=== PATIENT | male | born 1945 | race Caucasian/White ===

== ENCOUNTER 2018-04-06 17:32 | Emergency (ER) | payer MEDICARE, MEDICAID ==
[2018-04-06] MEDS ORDERED: Sodium Chloride 0.9% 10 ML Syringe FLUSH PRN (18:27)
--- NOTE | 2018-04-06 18:36 | EDM.PDOC ---
ED HPI GENERAL MEDICAL PROBLEM - General Chief Complaint: General Stated Complaint: FALL. IN BY AMB Time Seen by Provider: 04/06/18 18:17 Source of Information: Reports: Patient, EMS, EMS Notes Reviewed, RN, RN Notes Reviewed History Limitations: Reports: No Limitations - History of Present Illness INITIAL COMMENTS - FREE TEXT/NARRATIVE: Patient presented to ER per [facility] with complaint of weakness in the legs. He states his legs give out from under him. His speech is slurred, but friends state this is not new. He has pain in left leg and incontinence today. He has had no headache, fever, chills, chest pain, shortness of breath,nausea, vomiting and diarrhea. Onset: Today Location: Reports: Lower Extremity, Left, Lower Extremity, Right Quality: Reports: Ache Severity: Mild Improves with: Reports: None Worsens with: Reports: None Associated Symptoms: Reports: No Other Symptoms - Related Data Allergies Allergy/AdvReac Type Severity Reaction Status Date / Time No Known Allergies Allergy Verified 04/06/18 17:33 Home Meds: Home Meds Aspirin [Halfprin] 81 mg PO DAILY 12/05/16 [History] Carvedilol 6.25 mg PO BIDMEALS 12/05/16 [History] Chlorthalidone 12.5 mg PO DAILY 12/05/16 [History] Lisinopril/Hydrochlorothiazide [Lisinopril-Hctz 10-12.5 mg Tab] 1 tab PO DAILY 12/05/16 [History] amLODIPine [Norvasc] 10 mg PO DAILY 12/05/16 [History] Past Medical History - Past Health History Medical/Surgical History: Denies Medical/Surgical History HEENT History: Reports: Hard of Hearing Cardiovascular History: Reports: Hypertension, Syncope Endocrine/Metabolic History: Reports: Obesity/BMI 30+ Hematologic History: Reports: Anemia Dermatologic History: Reports: Cellulitis - Infectious Disease History Infectious Disease History: Reports: Chicken Pox, Measles, Mumps - Past Surgical History GI Surgical History: Reports: Colonoscopy Social & Family History - Family History Family Medical History: Noncontributory HEENT: Reports: Hearing Impairment Respiratory: Reports: COPD GI: Reports: Other (See Below) Other GI Family History: PRIMARY BILIARY CHOLANGITIS Neurological: Reports: Parkinson's - Tobacco Use Smoking Status *Q: Never Smoker Second Hand Smoke Exposure: No - Caffeine Use Caffeine Use: Reports: Coffee - Recreational Drug Use Recreational Drug Use: No ED ROS GENERAL - Review of Systems Review Of Systems: ROS reveals no pertinent complaints other than HPI. ED EXAM, GENERAL - Physical Exam Exam: See Below Exam Limited By: No Limitations General Appearance: Alert, WD/WN, No Apparent Distress Eye Exam: Bilateral Eye: Conjunctival Injection Ears: Normal External Exam, Normal Canal, Hearing Grossly Normal, Normal TMs Nose: Normal Inspection, Normal Mucosa, No Blood Throat/Mouth: Normal Inspection, Normal Lips, Normal Teeth, Normal Gums, Normal Oropharynx, Normal Voice, No Airway Compromise Head: Atraumatic, Normocephalic Neck: Normal Inspection, Supple, Non-Tender, Full Range of Motion Respiratory/Chest: Other (expiratory wheezes bilateral) Cardiovascular: Other (murmur irregular) GI/Abdominal: Normal Bowel Sounds, Soft, Non-Tender, No Organomegaly, No Distention, No Abnormal Bruit, No Mass (Male) Exam: Deferred Rectal (Males) Exam: Deferred Back Exam: Normal Inspection, Full Range of Motion, NT Extremities: Normal Inspection, Normal Range of Motion, Non-Tender, Normal Capillary Refill, No Pedal Edema Neurological: Alert, Oriented, CN II-XII Intact, Normal Cognition, Normal Gait, Normal Reflexes, No Motor/Sensory Deficits Psychiatric: Normal Affect, Normal Mood Skin Exam: Warm, Dry, Intact, Normal Color, No Rash Lymphatic: No Adenopathy Course - Vital Signs Last Recorded V/S: Last Vital Signs Temp 99.1 F 04/06/18 23:08 Pulse 77 04/06/18 23:08 Resp 16 04/06/18 23:08 BP 153/70 H 04/06/18 23:08 Pulse Ox 92 L 04/06/18 23:08 - Orders/Labs/Meds Labs: Laboratory Tests 04/06/18 04/06/18 04/06/18 Range/Units 18:36 18:36 18:36 WBC 13.0 H (5.0-10.0) 10^3/uL RBC 4.76 (4.6-6.2) 10^6/uL Hgb 14.7 D (14.0-18.0) g/dL Hct 43.9 (40.0-54.0) % MCV 92.2 (80-100) fL MCH 30.9 (27.0-34.0) pg MCHC 33.5 (33.0-35.0) g/dL Plt Count 179 (150-450) 10^3/uL Neut % (Auto) 81.4 H (42.2-75.2) % Lymph % (Auto) 7.6 L (20.5-50.1) % [place] % (Auto) 10.8 H (2-8) % Eos % (Auto) 0.0 L (1.0-3.0) % Baso % (Auto) 0.2 (0.0-1.0) % Sodium 134 L (135-145) mmol/L Potassium 3.1 L (3.6-5.0) mmol/L Chloride 97 L (101-111) mmol/L Carbon Dioxide 29.0 (21.0-31.0) mmol/L Anion Gap 11.1 BUN 19 H (7-18) mg/dL Creatinine 1.4 H (0.6-1.3) mg/dL Est Cr Clr Drug Dosing 42.10 mL/min Estimated GFR (MDRD) 50 BUN/Creatinine Ratio 13.57 Glucose 95 (74-105) mg/dL Lactic Acid 1.0 (0.5-2.2) mmol/L Calcium 9.1 (8.4-10.2) mg/dl Total Bilirubin 1.5 H (0.2-1.0) mg/dL AST 66 H (10-42) IU/L ALT 23 (10-60) IU/L Alkaline Phosphatase 61 (42-121) IU/L Troponin I 0.02 (0.00-0.02) ng/ml B-Natriuretic Peptide 149 H (0-100) pg/ml Total Protein 7.6 (6.7-8.2) g/dl Albumin 3.6 (3.2-5.5) g/dl Globulin 4.0 Albumin/Globulin Ratio 0.90 Urine Color (YELLOW) Urine Appearance (CLEAR) Urine pH (5.0-9.0) Ur Specific [place] (1.005-1.030) Urine Protein (NEGATIVE) Urine Glucose (UA) (NEGATIVE) Urine Ketones (NEGATIVE) Urine Occult Blood (NEGATIVE) Urine Nitrite (NEGATIVE) Urine Bilirubin (NEGATIVE) Urine Urobilinogen (0.2-1.0) mg/dL Ur Leukocyte Esterase (NEGATIVE) Urine RBC /HPF Urine WBC (0-5/HPF) /HPF Ur Epithelial Cells /HPF Urine Bacteria (0-FEW/HPF) /HPF Urine Mucus /LPF Urine Opiates Screen (NEGATIVE) Ur Oxycodone Screen (NEGATIVE) Urine Methadone Screen (NEGATIVE) Acetaminophen Ur Barbiturates Screen (NEGATIVE) U Tricyclic Antidepress (NEGATIVE) Ur Phencyclidine Scrn (NEGATIVE) Ur Amphetamine Screen (NEGATIVE) U Methamphetamines Scrn (NEGATIVE) Urine MDMA Screen (NEGATIVE) U Benzodiazepines Scrn (NEGATIVE) Urine Cocaine Screen (NEGATIVE) U Marijuana (THC) Screen (NEGATIVE) Ethyl Alcohol < 5 mg/dL 04/06/18 04/06/18 04/06/18 Range/Units 18:36 18:49 18:49 WBC (5.0-10.0) 10^3/uL RBC (4.6-6.2) 10^6/uL Hgb (14.0-18.0) g/dL Hct (40.0-54.0) % MCV (80-100) fL MCH (27.0-34.0) pg MCHC (33.0-35.0) g/dL Plt Count (150-450) 10^3/uL Neut % (Auto) (42.2-75.2) % Lymph % (Auto) (20.5-50.1) % [place] % (Auto) (2-8) % Eos % (Auto) (1.0-3.0) % Baso % (Auto) (0.0-1.0) % Sodium (135-145) mmol/L Potassium (3.6-5.0) mmol/L Chloride (101-111) mmol/L Carbon Dioxide (21.0-31.0) mmol/L Anion Gap BUN (7-18) mg/dL Creatinine (0.6-1.3) mg/dL Est Cr Clr Drug Dosing mL/min Estimated GFR (MDRD) BUN/Creatinine Ratio Glucose (74-105) mg/dL Lactic Acid (0.5-2.2) mmol/L Calcium (8.4-10.2) mg/dl Total Bilirubin (0.2-1.0) mg/dL AST (10-42) IU/L ALT (10-60) IU/L Alkaline Phosphatase (42-121) IU/L Troponin I (0.00-0.02) ng/ml B-Natriuretic Peptide (0-100) pg/ml Total Protein (6.7-8.2) g/dl Albumin (3.2-5.5) g/dl Globulin Albumin/Globulin Ratio Urine Color Dark yellow (YELLOW) Urine Appearance Clear (CLEAR) Urine pH 5.5 (5.0-9.0) Ur Specific [place] 1.020 (1.005-1.030) Urine Protein 30 H (NEGATIVE) Urine Glucose (UA) Negative (NEGATIVE) Urine Ketones 15 H (NEGATIVE) Urine Occult Blood Moderate H (NEGATIVE) Urine Nitrite Negative (NEGATIVE) Urine Bilirubin Small H (NEGATIVE) Urine Urobilinogen 0.2 (0.2-1.0) mg/dL Ur Leukocyte Esterase Negative (NEGATIVE) Urine RBC 0-5 /HPF Urine WBC 0-5 (0-5/HPF) /HPF Ur Epithelial Cells Occasional /HPF Urine Bacteria Moderate H (0-FEW/HPF) /HPF Urine Mucus Few H /LPF Urine Opiates Screen Negative (NEGATIVE) Ur Oxycodone Screen Negative (NEGATIVE) Urine Methadone Screen Negative (NEGATIVE) Acetaminophen < 10.0 Ur Barbiturates Screen Negative (NEGATIVE) U Tricyclic Antidepress Negative (NEGATIVE) Ur Phencyclidine Scrn Negative (NEGATIVE) Ur Amphetamine Screen Negative (NEGATIVE) U Methamphetamines Scrn Negative (NEGATIVE) Urine MDMA Screen Negative (NEGATIVE) U Benzodiazepines Scrn Negative (NEGATIVE) Urine Cocaine Screen Negative (NEGATIVE) U Marijuana (THC) Screen Negative (NEGATIVE) Ethyl Alcohol mg/dL Meds: Medications Discontinued Medications Generic Name Dose Route Start Last Admin Trade Name Freq PRN Reason Stop Dose Admin Sodium Chloride 1,000 mls @ 500 mls/hr 04/06/18 19:41 04/06/18 20:11 Normal Saline IV 04/06/18 21:40 500 mls/hr .BOLUS ONE Administration Potassium Chloride 20 meq 04/06/18 19:40 04/06/18 20:13 Klor-Con 10 PO 04/06/18 19:41 20 meq ONETIME ONE Administration Sodium Chloride 10 ml 04/06/18 18:27 04/06/18 18:54 Saline Flush FLUSH 10 ml ASDIRECTED PRN Administration Keep Vein Open Departure - Departure Time of Disposition: 23:50 Disposition: DC/Tfer to Acute Hospital 02 Clinical Impression: Hypokalemia TIA (transient ischemic attack) Qualifiers: Transient cerebral ischemia type: unspecified Qualified Code(s): G45.9 - Transient cerebral ischemic attack, unspecified - Discharge Information Referrals: PCP,Unobtain [Primary Care Provider] - Forms: ED Department Discharge, Interfacility Transfer JASPREET
[2018-04-06 19:11] LABS: CHLORIDE,CL 97 mmol/L (101-111); SODIUM,NA 134 mmol/L (135-145)
[2018-04-06] MEDS ORDERED: Potassium Chloride 10 MEQ Tab.ER PO ONE (19:40)
[2018-04-06] MEDS ORDERED: Sodium Chloride 0.9% 1,000 ML IV ONE (19:41)
[2018-04-06 23:09] VITALS: BP 153/70
--- NOTE | 2018-04-10 13:22 | EKG ---
04/06/2018- GARY TOLENTINO - FINDINGS: EKG shows a heart rate of 92 beats per minute. [facility] /[id number]
== END 2018-04-06 23:50 ==
LOC: DL.ED 17:32
DX: G45.9 Transient cerebral ischemic attack, unspecified (principal); E87.6 Hypokalemia; E66.9 Obesity, unspecified; I10 Essential (primary) hypertension; Z79.82 Long term (current) use of aspirin; Z79.899 Other long term (current) drug therapy
CPT/HCPCS: 36415; 70450; 71045; 80053; 80305; 81001; 83605; 83880; 84484; 85025; 87040; 93005; 93010; 96360; 96361; 99285; A9270; G0480; J7030; J7050

== ENCOUNTER 2021-02-05 11:46 | Inpatient (IN) | payer MEDICARE, MEDICAID ==
--- NOTE | 2021-02-05 14:12 | CR ---
PROCEDURE INFORMATION: Exam: XR Chest Exam date and time: 02/05/2021 1:53 PM Age: 76 years old Clinical indication: Wheezing TECHNIQUE: Imaging protocol: XR of the chest Views: 1 view. COMPARISON: CR Chest 1V Frontal 04/06/2018 7:06 PM FINDINGS: Lungs: Unremarkable. No consolidation. Pleural spaces: Unremarkable. No pleural effusion. No pneumothorax. Heart/Mediastinum: Unremarkable. No cardiomegaly. Bones/joints: Unremarkable. IMPRESSION: No acute findings.
[2021-02-05] MEDS ORDERED: Acetaminophen 325 MG Tab PO PRN (14:21)
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
[2021-02-05] MEDS ORDERED: Albuterol 0.083% 2.5 MG/3 ML Neb Soln NEB PRN (14:40)
[2021-02-05] MEDS: Albuterol 0.083% 2.5 MG/3 ML Neb Soln NEB SCH ×2 (14:45→17:37)
[2021-02-05] MEDS: Furosemide 40 MG/4 ML VIAL IVPUSH SCH (16:22)
--- NOTE | 2021-02-05 16:57 | US ---
PROCEDURE INFORMATION: Exam: US Duplex Lower Extremity Veins, Bilateral Exam date and time: 02/05/2021 3:51 PM Age: 76 years old Clinical indication: Swelling (edema) of limb; Lower extremity, bilateral TECHNIQUE: Imaging protocol: Real-time duplex ultrasound of the extremities with 2-D german scale, color Doppler flow and spectral waveform analysis with image documentation. Complete exam focused on the bilateral lower extremity veins. COMPARISON: No relevant prior studies available. FINDINGS: Right deep veins: Unremarkable. The common femoral, femoral, proximal profunda femoral and popliteal veins are patent without thrombus. Normal Doppler waveforms. Normal compressibility and/or augmentation response. Right superficial veins: Saphenofemoral junction is patent without thrombus. Left deep veins: Unremarkable. The common femoral, femoral, proximal profunda femoral and popliteal veins are patent without thrombus. Normal Doppler waveforms. Normal compressibility and/or augmentation response. Left superficial veins: Saphenofemoral junction is patent without thrombus. Soft tissues: Unremarkable. IMPRESSION: No evidence of deep vein thrombosis.
[2021-02-05] MEDS: methylPREDNISolone Sodium Succinate 40 MG/1 ML SDV IVPUSH SCH ×2 (18:28→23:56)
[2021-02-05] MEDS ORDERED: Albuterol 6.7 GM Inhaler INH PRN (19:57)
[2021-02-05] MEDS: Carvedilol 25 MG Tab PO SCH (20:26)
[2021-02-05] MEDS: Albuterol 6.7 GM Inhaler INH SCH (20:27)
[2021-02-06] MEDS: methylPREDNISolone Sodium Succinate 40 MG/1 ML SDV IVPUSH SCH ×3 (05:33→21:01)
[2021-02-06] MEDS: Furosemide 40 MG/4 ML VIAL IVPUSH SCH (05:36)
[2021-02-06 07:25] LABS: ANION GAP 14.9 mEq/L (7-13)
[2021-02-06] MEDS: Enoxaparin 40 MG/0.4 ML Syringe SUBCUT SCH (09:29)
[2021-02-06] MEDS: Aspirin 81 MG Tab.EC PO SCH (09:30)
[2021-02-06] MEDS: Carvedilol 25 MG Tab PO SCH ×2 (09:30→20:57)
[2021-02-06] MEDS: Albuterol 6.7 GM Inhaler INH SCH ×4 (09:31→21:00)
--- NOTE | 2021-02-06 09:51 | PCM.PN ---
- General Info Date of Service: 02/06/21 Admission Dx/Problem (Free Text): Tested positive for COVID19 and moved into isolation room. Feeling ok. Wheezing resolved. - Patient Data Vitals - Most Recent: Last Vital Signs Temp 98.0 F 02/06/21 04:00 Pulse 74 02/06/21 09:30 Resp 18 02/06/21 04:00 BP 132/77 02/06/21 09:30 Pulse Ox 92 L 02/06/21 04:00 Weight - Most Recent: 234 lb 6.4 oz I&O - Last 24 Hours: Intake & Output 02/05/21 02/06/21 02/06/21 22:59 06:59 14:59 Intake Total 250 Output Total 125 Balance 125 Lab Results Last 24 Hours: Laboratory Results - last 24 hr 02/05/21 02/06/21 Range/Units 18:12 06:35 Sodium 143 (136-145) mmol/L Potassium 3.9 (3.5-5.1) mmol/L Chloride 102 (98-107) mmol/L Carbon Dioxide 30 (21-32) mmol/L Anion Gap 14.9 H (7-13) mEq/L BUN 24 H (7-18) mg/dL Creatinine 1.33 H (0.70-1.30) mg/dL Est Cr Clr Drug Dosing 40.80 mL/min Estimated GFR (MDRD) 53 Glucose 144 H (74-99) mg/dL Calcium 8.5 (8.5-10.1) mg/dL Phosphorus 4.1 (2.6-4.7) mg/dL Magnesium 1.9 (1.8-2.4) mg/dL SARS-CoV-2 RNA (CHECO) Positive H (NEGATIVE) Med Orders - Current: Current Medications Acetaminophen (Acetaminophen 325 Mg Tab) 650 mg PO Q4H PRN PRN Reason: Pain (Mild 1-3)/fever Albuterol (Albuterol 6.7 Gm Inhaler) 0 gm INH QID [facility] Last Admin: 02/06/21 09:31 Dose: 2 puff Documented by: Albuterol (Albuterol 6.7 Gm Inhaler) 0 gm INH Q4H PRN PRN Reason: Shortness of Breath Aspirin (Aspirin 81 Mg Tab.Ec) 81 mg PO DAILY [facility] Last Admin: 02/06/21 09:30 Dose: 81 mg Documented by: Carvedilol (Carvedilol 25 Mg Tab) 25 mg PO BID [facility] Last Admin: 02/06/21 09:30 Dose: 25 mg Documented by: Enoxaparin Sodium (Enoxaparin 40 Mg/0.4 Ml Syringe) 40 mg SUBCUT DAILY [facility] Last Admin: 02/06/21 09:29 Dose: 40 mg Documented by: Methylprednisolone Sodium Succinate (Methylprednisolone Sodium Succinate 40 Mg/1 Ml Sdv) 40 mg IVPUSH Q8H [facility] Discontinued Medications Albuterol (Albuterol 0.083% 2.5 Mg/3 Ml Neb Soln) 2.5 mg NEB Q4HRRT PRN PRN Reason: Wheezing Albuterol (Albuterol 0.083% 2.5 Mg/3 Ml Neb Soln) 2.5 mg NEB QIDRT [facility] Last Admin: 02/05/21 17:37 Dose: 2.5 mg Documented by: Furosemide (Furosemide 40 Mg/4 Ml Vial) 40 mg IVPUSH 0600,1400 [facility] Last Admin: 02/06/21 05:36 Dose: 40 mg Documented by: Methylprednisolone Sodium Succinate (Methylprednisolone Sodium Succinate 40 Mg/1 Ml Sdv) 40 mg IVPUSH Q6H [facility] Last Admin: 02/06/21 05:33 Dose: 40 mg Documented by: - Exam Quality Assessment: No: Supplemental Oxygen General: Alert, Oriented, Cooperative HEENT: Pupils Equal, Pupils Reactive Neck: Supple Lungs: Clear to Auscultation, Normal Respiratory Effort Cardiovascular: Regular Rate, Regular Rhythm GI/Abdominal Exam: Normal Bowel Sounds, Soft, Non-Tender, No Distention Extremities: Other (trace pitting edema) Skin: Warm, Dry Neurological: No New Focal Deficit Psy/Mental Status: Alert, Normal Affect, Normal Mood - Patient Data Lab Results Last 24 hrs: Laboratory Results - last 24 hr 02/05/21 02/06/21 Range/Units 18:12 06:35 Sodium 143 (136-145) mmol/L Potassium 3.9 (3.5-5.1) mmol/L Chloride 102 (98-107) mmol/L Carbon Dioxide 30 (21-32) mmol/L Anion Gap 14.9 H (7-13) mEq/L BUN 24 H (7-18) mg/dL Creatinine 1.33 H (0.70-1.30) mg/dL Est Cr Clr Drug Dosing 40.80 mL/min Estimated GFR (MDRD) 53 Glucose 144 H (74-99) mg/dL Calcium 8.5 (8.5-10.1) mg/dL Phosphorus 4.1 (2.6-4.7) mg/dL Magnesium 1.9 (1.8-2.4) mg/dL SARS-CoV-2 RNA (CHECO) Positive H (NEGATIVE) Result Diagrams: 02/06/21 06:35 Sepsis Event Note - Evaluation Sepsis Screening Result: No Definite Risk - Focused Exam Vital Signs: Vital Signs Temp Pulse Pulse Resp BP BP BP 02/06/21 09:30 74 132/77 02/06/21 04:00 98.0 F 65 18 125/75 02/06/21 00:00 97.3 F 67 20 110/66 Pulse Ox 02/06/21 09:30 02/06/21 04:00 92 L 02/06/21 00:00 94 L - Problem List Review Problem List Initiated/Reviewed/Updated: No - My Orders Last 24 Hours: My Active Orders 02/05/21 14:21 Patient Status [ADT] Routine Oxygen Therapy [RC] PRN Up ad Nadege [RC] ASDIRECTED VTE/DVT Education [RC] PER UNIT ROUTINE Vital Signs [RC] 00,04,08,12,16,20 Acetaminophen [TylenoL] 650 mg PO Q4H PRN Resuscitation Status Routine 02/05/21 Dinner Heart Healthy Diet [DIET] 02/05/21 19:42 Nurse Communication: Isolation [RC] ASDIRECTED Isolation [COMM] Routine 02/05/21 19:57 RT Post Treatment Assessment [RC] Click to Edit RT Pre-Treatment Assessment [RC] Click to Edit Albuterol [Proventil HFA] 0 gm INH Q4H PRN 02/05/21 21:00 Albuterol [Proventil HFA] 0 gm INH QID carvediloL [Coreg] 25 mg PO BID 02/06/21 09:00 Aspirin [Halfprin] 81 mg PO DAILY Enoxaparin [Lovenox] 40 mg SUBCUT DAILY 02/06/21 14:00 methylPREDNISolone Sod Succ [Solu-MEDROL] 40 mg IVPUSH Q8H - Plan Plan:: #COVID19 w/ bronchospasm - there is no respiratory failure so will defer remdesivir - wheezing improved so will taper solumedrol q6h >>> q8h #LE edema - d/c IV lasix - restart home dose tomorrow #HT - hold chlorthalidone and amlodipine given IV lasix use PPX - LMWH Full code
[2021-02-07] MEDS: methylPREDNISolone Sodium Succinate 40 MG/1 ML SDV IVPUSH SCH ×2 (06:06→17:51)
[2021-02-07 06:55] LABS: ANION GAP 11.2 mEq/L (7-13)
[2021-02-07] MEDS: Aspirin 81 MG Tab.EC PO SCH (08:21)
[2021-02-07] MEDS: Enoxaparin 40 MG/0.4 ML Syringe SUBCUT SCH (08:21)
[2021-02-07] MEDS: Carvedilol 25 MG Tab PO SCH ×2 (08:21→21:33)
[2021-02-07] MEDS: Albuterol 6.7 GM Inhaler INH SCH ×4 (08:22→21:34)
[2021-02-07] MEDS ORDERED: methylPREDNISolone Sodium Succinate 40 MG/1 ML SDV IVPUSH SCH (12:00)
--- NOTE | 2021-02-07 17:29 | PCM.PN ---
- General Info Date of Service: 02/07/21 Admission Dx/Problem (Free Text): Occasionally coughs. Feels improved. - Patient Data Vitals - Most Recent: Last Vital Signs Temp 97.6 F 02/07/21 16:22 Pulse 55 L 02/07/21 16:22 Resp 16 02/07/21 16:22 BP 114/71 02/07/21 16:22 Pulse Ox 98 02/07/21 16:22 Weight - Most Recent: 241 lb I&O - Last 24 Hours: Intake & Output 02/07/21 02/07/21 02/07/21 06:59 14:59 22:59 Intake Total 1670 Balance 1670 Lab Results Last 24 Hours: Laboratory Results - last 24 hr 02/07/21 02/07/21 Range/Units 06:26 06:26 WBC 21.2 H (5.0-10.0) 10^3/uL RBC 4.59 L (4.6-6.2) 10^6/uL Hgb 14.6 (14.0-18.0) g/dL Hct 43.6 (40.0-54.0) % MCV 95.0 (80-100) fL MCH 31.8 (27.0-34.0) pg MCHC 33.5 (33.0-35.0) g/dL Plt Count 218 (150-450) 10^3/uL Neut % (Auto) 88.9 H (42.2-75.2) % Lymph % (Auto) 7.9 L (20.5-50.1) % Sterling % (Auto) 3.1 (2-8) % Eos % (Auto) 0.0 L (1.0-3.0) % Baso % (Auto) 0.1 (0.0-1.0) % Sodium 142 (136-145) mmol/L Potassium 4.2 (3.5-5.1) mmol/L Chloride 102 (98-107) mmol/L Carbon Dioxide 33 H (21-32) mmol/L Anion Gap 11.2 (7-13) mEq/L BUN 36 H (7-18) mg/dL Creatinine 1.28 (0.70-1.30) mg/dL Est Cr Clr Drug Dosing 42.40 mL/min Estimated GFR (MDRD) 55 Glucose 127 H (74-99) mg/dL Calcium 8.7 (8.5-10.1) mg/dL Med Orders - Current: Current Medications Acetaminophen (Acetaminophen 325 Mg Tab) 650 mg PO Q4H PRN PRN Reason: Pain (Mild 1-3)/fever Albuterol (Albuterol 6.7 Gm Inhaler) 0 gm INH QID [facility] Last Admin: 02/07/21 16:23 Dose: 2 puff Documented by: Albuterol (Albuterol 6.7 Gm Inhaler) 0 gm INH Q4H PRN PRN Reason: Shortness of Breath Aspirin (Aspirin 81 Mg Tab.Ec) 81 mg PO DAILY [facility] Last Admin: 02/07/21 08:21 Dose: 81 mg Documented by: Carvedilol (Carvedilol 25 Mg Tab) 25 mg PO BID [facility] Last Admin: 02/07/21 08:21 Dose: 25 mg Documented by: Enoxaparin Sodium (Enoxaparin 40 Mg/0.4 Ml Syringe) 40 mg SUBCUT DAILY [facility] Last Admin: 02/07/21 08:21 Dose: 40 mg Documented by: Methylprednisolone Sodium Succinate (Methylprednisolone Sodium Succinate 40 Mg/1 Ml Sdv) 40 mg IVPUSH Q12H [facility] Discontinued Medications Albuterol (Albuterol 0.083% 2.5 Mg/3 Ml Neb Soln) 2.5 mg NEB Q4HRRT PRN PRN Reason: Wheezing Albuterol (Albuterol 0.083% 2.5 Mg/3 Ml Neb Soln) 2.5 mg NEB QIDRT [facility] Last Admin: 02/05/21 17:37 Dose: 2.5 mg Documented by: Furosemide (Furosemide 40 Mg/4 Ml Vial) 40 mg IVPUSH 0600,1400 [facility] Last Admin: 02/06/21 05:36 Dose: 40 mg Documented by: Methylprednisolone Sodium Succinate (Methylprednisolone Sodium Succinate 40 Mg/1 Ml Sdv) 40 mg IVPUSH Q6H [facility] Last Admin: 02/06/21 05:33 Dose: 40 mg Documented by: Methylprednisolone Sodium Succinate (Methylprednisolone Sodium Succinate 40 Mg/1 Ml Sdv) 40 mg IVPUSH Q8H [facility] Last Admin: 02/07/21 06:06 Dose: 40 mg Documented by: Methylprednisolone Sodium Succinate (Methylprednisolone Sodium Succinate 40 Mg/1 Ml Sdv) 40 mg IVPUSH Q12H JENNI - Exam Quality Assessment: No: Supplemental Oxygen General: Alert, Oriented, Cooperative HEENT: Pupils Equal, Pupils Reactive Neck: Supple Lungs: Clear to Auscultation, Normal Respiratory Effort Cardiovascular: Regular Rate, Regular Rhythm, No Murmurs GI/Abdominal Exam: Normal Bowel Sounds, Soft, Non-Tender, No Distention Extremities: Other (trace pedal edema) Skin: Warm, Dry Neurological: No New Focal Deficit Psy/Mental Status: Alert, Normal Affect, Normal Mood - Patient Data Lab Results Last 24 hrs: Laboratory Results - last 24 hr 02/07/21 02/07/21 Range/Units 06:26 06:26 WBC 21.2 H (5.0-10.0) 10^3/uL RBC 4.59 L (4.6-6.2) 10^6/uL Hgb 14.6 (14.0-18.0) g/dL Hct 43.6 (40.0-54.0) % MCV 95.0 (80-100) fL MCH 31.8 (27.0-34.0) pg MCHC 33.5 (33.0-35.0) g/dL Plt Count 218 (150-450) 10^3/uL Neut % (Auto) 88.9 H (42.2-75.2) % Lymph % (Auto) 7.9 L (20.5-50.1) % Sterling % (Auto) 3.1 (2-8) % Eos % (Auto) 0.0 L (1.0-3.0) % Baso % (Auto) 0.1 (0.0-1.0) % Sodium 142 (136-145) mmol/L Potassium 4.2 (3.5-5.1) mmol/L Chloride 102 (98-107) mmol/L Carbon Dioxide 33 H (21-32) mmol/L Anion Gap 11.2 (7-13) mEq/L BUN 36 H (7-18) mg/dL Creatinine 1.28 (0.70-1.30) mg/dL Est Cr Clr Drug Dosing 42.40 mL/min Estimated GFR (MDRD) 55 Glucose 127 H (74-99) mg/dL Calcium 8.7 (8.5-10.1) mg/dL Result Diagrams: 02/07/21 06:26 03/28/21 06:26 Sepsis Event Note - Evaluation Sepsis Screening Result: No Definite Risk - Focused Exam Vital Signs: Vital Signs Temp Pulse Pulse Resp BP BP Pulse Ox 02/07/21 16:22 97.6 F 55 L 16 114/71 98 02/07/21 14:00 02/07/21 12:00 97.9 F 68 18 126/72 97 02/07/21 08:23 98.3 F 63 18 136/76 95 02/07/21 08:21 63 136/76 Pulse Ox 02/07/21 16:22 02/07/21 14:00 97 02/07/21 12:00 02/07/21 08:23 02/07/21 08:21 - Problem List Review Problem List Initiated/Reviewed/Updated: No - My Orders Last 24 Hours: My Active Orders 02/07/21 18:00 methylPREDNISolone Sod Succ [Solu-MEDROL] 40 mg IVPUSH Q12H - Plan Plan:: #COVID19 w/ bronchospasm - there is no respiratory failure so will defer remdesivir - continue to taper solumedrol q8h >>> q12h #LE edema - restart lasix 20 - restarted at daily dosing given there is still some edema (home dosing was q48h) #HT - hold chlorthalidone and amlodipine since BP normal PPX - LMWH Full code
[2021-02-08] MEDS: methylPREDNISolone Sodium Succinate 40 MG/1 ML SDV IVPUSH SCH (05:29)
[2021-02-08] MEDS: Aspirin 81 MG Tab.EC PO SCH (08:08)
[2021-02-08] MEDS: Carvedilol 25 MG Tab PO SCH (08:08)
[2021-02-08] MEDS: Enoxaparin 40 MG/0.4 ML Syringe SUBCUT SCH (08:12)
[2021-02-08] MEDS: Albuterol 6.7 GM Inhaler INH SCH ×2 (08:15→13:00)
[2021-02-08] MEDS ORDERED: Furosemide 20 MG Tab PO SCH (09:00)
--- NOTE | 2021-02-08 12:16 | PCM.DCSUM1 ---
Discharge Summary - Hospital Course Free Text/Narrative:: Pt is 76 y/o man with h/o obesity presented to the ER with SOB. Pt reports that he already completed his COVID vaccination X 2. Pt reported no fever or CP. Pt was found with B wheezing. His CXR showed no infiltrate and COVID PCR was positive. Pt maintained his Pulse OX in ~ 95 all the time. He had no fever. He was started on IV Methylpred and the dose was gradually improved. His respiratory status improved to close to baseline. Pt requested to go home. He was advised to self quarantine and to report to ER if any change - Discharge Data Discharge Date: 02/08/21 Discharge Disposition: Home, Self-Care 01 Condition: Good - Referral to Home Health Date of Face to Face Encounter: 02/08/21 Primary Care Physician: Arcelia Santizo [employer] - Discharge Diagnosis/Problem(s) (1) COVID-19 SNOMED Code(s): 131509599 ICD Code: U07.1 - COVID-19 Status: Acute Current Visit: Yes - Patient Instructions Diet: Heart Healthy Diet - Discharge Plan *PRESCRIPTION DRUG MONITORING PROGRAM REVIEWED*: Not Applicable *COPY OF PRESCRIPTION DRUG MONITORING REPORT IN PATIENT SAGE: Not Applicable Prescriptions/Med Rec: Fluticasone Propion/Salmeterol [Advair 250-50 Diskus] 1 puff IH BID #1 blst.w.dev predniSONE [Prednisone] 40 mg PO DAILY 7 Days #7 tab.ds.pk Albuterol [Proventil HFA] 2 inh INH QID 15 Days #1 inhaler Home Medications: Home Meds Aspirin [Halfprin] 81 mg PO DAILY 12/05/16 [History] Chlorthalidone 12.5 mg PO DAILY 12/05/16 [History] amLODIPine [Norvasc] 5 mg PO DAILY 12/05/16 [History] Furosemide [Lasix] 20 mg PO Q48H 02/05/21 [History] carvediloL [Carvedilol] 25 mg PO BID 02/05/21 [History] Acetaminophen [Tylenol] 650 mg PO Q4H PRN tablet 02/08/21 [Rx] Albuterol [Proventil HFA] 2 inh INH QID 15 Days #1 inhaler 02/08/21 [Rx] Fluticasone Propion/Salmeterol [Advair 250-50 Diskus] 1 puff IH BID #1 blst.w .dev 02/08/21 [Rx] predniSONE [Prednisone] 40 mg PO DAILY 7 Days #7 tab.ds.pk 02/08/21 [Rx] Oxygen Therapy Mode: Room Air (advised to self quarantine due to COVID) Patient Handouts: COVID-19 Frequently Asked Questions, Fluticasone; Salmeterol inhalation powder, COVID-19: How to Protect Yourself and Others - [facility], Prednisone tablets, Albuterol inhalation solution, Prevent the Spread of COVID- 19 if You Are Sick - [facility] Referrals: Arcelia Santizo NP [Primary Care Provider] - - Discharge Summary/Plan Comment DC Time >30 min.: Yes - General Info Date of Service: 02/08/21 - Review of Systems General: Denies: Fever Pulmonary: Denies: Shortness of Breath, Cough Cardiovascular: Denies: Chest Pain Gastrointestinal: Denies: Abdominal Pain Skin: Denies: Cyanosis Neurological: Denies: Confusion Psychiatric: Denies: Confusion - Patient Data Vitals - Most Recent: Last Vital Signs Temp 97.9 F 02/08/21 08:08 Pulse 58 L 02/08/21 08:08 Resp 18 02/08/21 08:08 BP 155/92 H 02/08/21 08:08 Pulse Ox 95 02/08/21 08:08 Weight - Most Recent: 231 lb I&O - Last 24 hours: Intake & Output 02/07/21 02/08/21 02/08/21 22:59 06:59 14:59 Intake Total 560 440 Balance 560 440 Med Orders - Current: Current Medications Acetaminophen (Acetaminophen 325 Mg Tab) 650 mg PO Q4H PRN PRN Reason: Pain (Mild 1-3)/fever Albuterol (Albuterol 6.7 Gm Inhaler) 0 gm INH QID [facility] Last Admin: 02/08/21 08:15 Dose: 2 puff Documented by: Albuterol (Albuterol 6.7 Gm Inhaler) 0 gm INH Q4H PRN PRN Reason: Shortness of Breath Aspirin (Aspirin 81 Mg Tab.Ec) 81 mg PO DAILY [facility] Last Admin: 02/08/21 08:08 Dose: 81 mg Documented by: Carvedilol (Carvedilol 25 Mg Tab) 25 mg PO BID [facility] Last Admin: 02/08/21 08:08 Dose: 25 mg Documented by: Enoxaparin Sodium (Enoxaparin 40 Mg/0.4 Ml Syringe) 40 mg SUBCUT DAILY [facility] Last Admin: 02/08/21 08:12 Dose: 40 mg Documented by: Furosemide (Furosemide 20 Mg Tab) 20 mg PO DAILY [facility] Last Admin: 02/08/21 08:08 Dose: 20 mg Documented by: Methylprednisolone Sodium Succinate (Methylprednisolone Sodium Succinate 40 Mg/1 Ml Sdv) 40 mg IVPUSH Q12H [facility] Last Admin: 02/08/21 05:29 Dose: 40 mg Documented by: Discontinued Medications Albuterol (Albuterol 0.083% 2.5 Mg/3 Ml Neb Soln) 2.5 mg NEB Q4HRRT PRN PRN Reason: Wheezing Albuterol (Albuterol 0.083% 2.5 Mg/3 Ml Neb Soln) 2.5 mg NEB QIDRT [facility] Last Admin: 02/05/21 17:37 Dose: 2.5 mg Documented by: Furosemide (Furosemide 40 Mg/4 Ml Vial) 40 mg IVPUSH 0600,1400 [facility] Last Admin: 02/06/21 05:36 Dose: 40 mg Documented by: Methylprednisolone Sodium Succinate (Methylprednisolone Sodium Succinate 40 Mg/1 Ml Sdv) 40 mg IVPUSH Q6H [facility] Last Admin: 02/06/21 05:33 Dose: 40 mg Documented by: Methylprednisolone Sodium Succinate (Methylprednisolone Sodium Succinate 40 Mg/1 Ml Sdv) 40 mg IVPUSH Q8H [facility] Last Admin: 02/07/21 06:06 Dose: 40 mg Documented by: Methylprednisolone Sodium Succinate (Methylprednisolone Sodium Succinate 40 Mg/1 Ml Sdv) 40 mg IVPUSH Q12H [facility] - Exam General: Reports: Alert, Oriented, Cooperative, No Acute Distress Extremities: Normal Inspection, No Pedal Edema (exam deferred due to COVID pandemic ) Neurological: Reports: No New Focal Deficit (the rest of exam was deferred due t o COVID status) Psy/Mental Status: Reports: Alert
[2021-02-08 14:22] VITALS: BP 123/78; PULSE 53
== END 2021-02-08 13:20 | disposition home or self-care (01) | DRG 179 ==
LOC: DL.MS 12:05 → OBSVTOIN 14:21 → DL.MS 14:21
PROVIDERS: ADMIT Internal Medicine; ATTEND Internal Medicine
PROC: 8E0ZXY6 Isolation (ICD-10-PCS; principal; 2021-02-05)
DX: U07.1 COVID-19 (principal); J98.01 Acute bronchospasm; H91.90 Unspecified hearing loss, unspecified ear; E66.9 Obesity, unspecified; D63.1 Anemia in chronic kidney disease; I12.9 Hypertensive chronic kidney disease with stage 1 through stage 4 chronic kidney disease, or unspecified chronic kidney disease; N18.9 Chronic kidney disease, unspecified; J44.9 Chronic obstructive pulmonary disease, unspecified; R06.03 Acute respiratory distress; Z79.82 Long term (current) use of aspirin; Z79.899 Other long term (current) drug therapy; Z68.39 Body mass index [BMI] 39.0-39.9, adult
CPT/HCPCS: 36415; 71045; 80048; 83735; 84100; 85025; 93970; 94640; 99222; 99232; 99239; A9270-GY; J1650; J1940; J2920; J7613-GY; U0002

== ENCOUNTER 2021-11-18 07:06 | Emergency (ER) | payer MEDICARE, MEDICAID ==
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
[2021-11-18 07:21] VITALS: BP 158/95; PULSE 88
== END 2021-11-18 08:16 | disposition home or self-care (01) ==
LOC: DL.ED 07:06
DX: R04.0 Epistaxis (principal); I10 Essential (primary) hypertension; E66.9 Obesity, unspecified; Z68.30 Body mass index [BMI] 30.0-30.9, adult; Z86.73 Personal history of transient ischemic attack (TIA), and cerebral infarction without residual deficits; Z79.82 Long term (current) use of aspirin
CPT/HCPCS: 99284

== ENCOUNTER 2021-11-24 12:06 | Emergency (ER) | payer MEDICARE, MEDICAID | END 2021-11-24 13:00 | disposition home health service (06) | LOC: DL.ED 12:06 | DX: Z53.21 Procedure and treatment not carried out due to patient leaving prior to being seen by health care provider (principal) ==

== ENCOUNTER 2025-01-26 08:57 | Emergency (ER) | payer MEDICARE, MEDICAID ==
[2025-01-26] MEDS: Sodium Chloride 0.9% 500 ML IV SCH (09:37)
[2025-01-26 09:41] LABS: BASOPHILS PERCENT AUTO 0.1 % (0.0-1.0); HEMATOCRIT 44.9 % (40.0-54.0); HEMOGLOBIN 14.8 g/dL (14.0-18.0); LYMPHOCYTES PERCENT AUTO 19.8 % (20.5-50.1); MEAN CORPUSCULAR HEMOGLOBIN 31.4 pg (27.0-34.0); MEAN CORPUSCULAR VOLUME 95.1 fL (80-100); MONOCYTES PERCENT AUTO 7.5 % (2-8); NEUTROPHILS PERCENT AUTO 72.6 % (42.2-75.2); PLATELET COUNT,PLT 230 10^3/uL (150-450); RED BLOOD CELL COUNT 4.72 10^6/uL (4.6-6.2); WHITE BLOOD CELL COUNT,WBC 12.4 10^3/uL (5.0-10.0)
[2025-01-26] MEDS: Albuterol/Ipratropium 3.0-0.5 MG/3 ML Neb Soln NEB ONE (09:50)
[2025-01-26 10:06] LABS: ALANINE AMINOTRANSFERASE,ALT 17 U/L (16-63); ALBUMIN 3.2 g/dL (3.4-5.0); ALKALINE PHOSPHATASE 68 U/L (46-116); ANION GAP 13.3 mEq/L (7-13); ASPARTATE AMNIOTRANSFERASE,AST 18 U/L (15-37); BILIRUBIN DIRECT 0.2 mg/dL (0.0-0.2); BILIRUBIN INDIRECT 0.5; BILIRUBIN TOTAL 0.7 mg/dL (0.2-1.0); BLOOD UREA NITROGEN,BUN 23 mg/dL (7-18); CALCIUM 9.4 mg/dL (8.5-10.1); CARBON DIOXIDE,CO2 30 mmol/L (21-32); CHLORIDE,CL 104 mmol/L (98-107); CREATININE 1.32 mg/dL (0.70-1.30); EST CRCL DRUG DOSING (CG) 43.12 mL/min; GLUCOSE RANDOM 107 mg/dL (70-99); POTASSIUM,K 4.3 mmol/L (3.5-5.1); PROTEIN TOTAL,TP 7.6 g/dL (6.4-8.2); SODIUM,NA 143 mmol/L (136-145)
[2025-01-26 10:09] LABS: A/G RATIO 0.73; ESTIMATED GFR 55 mL/min (>=60)
[2025-01-26] MEDS: Iopamidol 612 MG/ML 100 ML Bottle IVPUSH ONE (10:37)
[2025-01-26] MEDS: Sodium Chloride 0.9% 1,000 ML IV SCH (10:40)
[2025-01-26] MEDS: Iopamidol 755 Mg/ML 100 ML Bottle IVPUSH ONE (11:20)
[2025-01-26] MEDS: Albuterol 0.083% 2.5 MG/3 ML Neb Soln NEB ONE (11:27)
[2025-01-26 13:14] VITALS: BP 125/82; PULSE 63
== END 2025-01-26 12:58 | disposition home or self-care (01) ==
LOC: DL.ED 08:57
DX: J40 Bronchitis, not specified as acute or chronic (principal); I10 Essential (primary) hypertension; E66.9 Obesity, unspecified; Z79.82 Long term (current) use of aspirin; Z79.899 Other long term (current) drug therapy; Z86.16 Personal history of COVID-19; Z68.36 Body mass index [BMI] 36.0-36.9, adult
CPT/HCPCS: 36415; 71045; 71275; 80048; 80076; 84484; 85025; 85379; 87428; 93005; 93010; 94640; 96360; 96361; 99283; 99285; A9270; J7030; Q9967

== ENCOUNTER 2025-02-15 11:24 | Emergency (ER) | payer MEDICARE, MEDICAID ==
[2025-02-15 11:59] LABS: BASOPHILS PERCENT AUTO 0.1 % (0.0-1.0); EOSINOPHILS PERCENT AUTO 1.5 % (1.0-3.0); HEMATOCRIT 44.1 % (40.0-54.0); HEMOGLOBIN 14.4 g/dL (14.0-18.0); MEAN CORPUSCULAR HEMOGLOBIN 31.4 pg (27.0-34.0); MEAN CORPUSCULAR HGB CONC 32.7 g/dL (33.0-35.0); MEAN CORPUSCULAR VOLUME 96.1 fL (80-100); MONOCYTES PERCENT AUTO 13.9 % (2-8); NEUTROPHILS PERCENT AUTO 56.5 % (42.2-75.2); PLATELET COUNT,PLT 257 10^3/uL (150-450); RED BLOOD CELL COUNT 4.59 10^6/uL (4.6-6.2); WHITE BLOOD CELL COUNT,WBC 6.7 10^3/uL (5.0-10.0)
[2025-02-15 12:18] LABS: PROTHROMBIN TIME 10.3 SEC (9.0-12.0); PTT,PARTIAL THROMBOPLSTIN TIME 28.3 SEC (22.0-34.0)
[2025-02-15 12:23] LABS: A/G RATIO 0.63; ALBUMIN 3.1 g/dL (3.4-5.0); ANION GAP 13.2 mEq/L (7-13); BILIRUBIN TOTAL 1.1 mg/dL (0.2-1.0); C-REACTIVE PROTEIN 5.34 ng/dL (<=0.50); CALCIUM 9.4 mg/dL (8.5-10.1); CREATININE 1.23 mg/dL (0.70-1.30); EST CRCL DRUG DOSING (CG) 44.67 mL/min; POTASSIUM,K 4.2 mmol/L (3.5-5.1)
[2025-02-15 12:26] LABS: LACTIC ACID 0.9 mmol/L (0.4-2.0)
[2025-02-15] MEDS: Iopamidol 755 Mg/ML 100 ML Bottle IVPUSH ONE (13:38)
[2025-02-15] MEDS: Acetaminophen 500 MG Tab PO ONE (15:19)
[2025-02-15 15:23] VITALS: BP 137/85; PULSE 81
== END 2025-02-15 15:19 | disposition home or self-care (01) ==
LOC: DL.ED 11:24
DX: I73.9 Peripheral vascular disease, unspecified (principal); I10 Essential (primary) hypertension; E66.9 Obesity, unspecified; Z79.899 Other long term (current) drug therapy; Z79.82 Long term (current) use of aspirin; Z68.37 Body mass index [BMI] 37.0-37.9, adult
CPT/HCPCS: 36415; 71045; 71275; 80053; 83605; 83880; 85025; 85379; 85610; 85730; 86140; 93971; 99283; 99284; A9270; Q9967